=== PATIENT | female | born 1960 | race Caucasian/White ===

== ENCOUNTER 2023-12-04 16:45 | Emergency (ER) | payer MEDICAID, SELFPAY ==
[2023-12-04 17:00] VITALS: BP 122/79; PULSE 90; RESP 18; TEMP 36.2; O2SAT 98
--- NOTE | 2023-12-04 19:04 | ED_ITS ---
HPI - General Adult General Date Seen: 12/04/23 Chief complaint: Chest Pain Stated complaint: chest pain, anxiety Time Seen by Provider: 12/04/23 19:04 History of Present Illness HPI narrative: 63-year-old female presenting to the ER this afternoon for evaluation of chest pain. Per triage note she is complaining a major anxiety which he has had for a while. She has a prescription for medication but it is not working. Usually lorazepam helps. She normally gets her care through [facility] system. Patient presents that she is coming here for uncontrolled anxiety associated with nausea, vomiting, diarrhea and also chest pain. She says she has a longstanding history of anxiety and has a lot of trauma recently. She found her boyfriend last July and is still going through the grief and loss process for that. She also broke her left foot about 2 months ago and is still recovering from that. She has multiple other stressors in her life. She typically manages her anxiety with Ativan. It sounds like she may have been on other meds as well, (possibly Effexor? ). She says for the past couple of days she has developed vomiting and diarrhea. Also with that she has been having some chest discomfort since yesterday. Discomfort is located in the lower. Xiphoid region of her chest. She has been very anxious and tearful and can not control her anxiety. She says she has a good doctor at [facility] and they prescribed a new medication for her anxiety, but it is not working. She plans to follow-up with her doctor on Thursday to let them know that the medications not helping. She came to the ER today because she feels like her anxiety is out of control and she needs help. She is tearful over talking and says she has a lot of grief about her boyfriend dying and also multiple other stressors. She is not wanting to hurt herself. No thoughts of suicide. She politely declines the offer to talk to a psychologist here. She has made an appointment to see [facility] next week. She is wearing a cam walker on her left lower extremity. She says she broke her left foot or ankle about 6 or 8 weeks ago. It has been surgically repaired. She has already had a workup done at [facility] a couple weeks ago that was negative for any blood clots. She is not having any new pain or swelling in her leg today. No fever. No cough. No abdominal pain. No flank pain or back pain. Per record from [facility] link She saw Dr. Jaimes on 12/01. She has a past medical history through line of generalized anxiety disorder, panic attacks, noncompliance of medication treatment due to overuse of medication and/benzodiazepines. According to the liner records she had a prescription for 56 10 mg diazepam tablets and #30 Effexor XR 75 mg extended release capsules prescribed by Dr. Jaimes on 12/02/2023. According to his discharge instructions from note dated 12/02/2023 * We're going to start a very long taper of diazepam (valium) * Increase dose of venlefaxine to 75 mg but wait at least three days from starting diazepam. I've prescribed a new prescription for this but you can start by just taking two of the 37.5 mg capsules you currently have a the same time * Follow up with me on Thursday at 1030 for phone visit for now. Related Data Home Medications Medication Instructions Recorded Confirmed No Known Home Medications 12/04/23 12/04/23 Allergies Allergy/AdvReac Type Severity Reaction Status Date / Time hydroxyzine Allergy Intermediate Verified 12/04/23 17:07 Penicillins Allergy Intermediate Rash Verified 12/04/23 17:07 nickel Allergy Intermediate Uncoded 12/04/23 17:07 [facility] Social History Smoking Status: Unknown if ever smoked Exam Narrative: Exam Narrative: Constitutional: Encountered in ER room for, or ENT room, because all other ER beds are full. She has the pneumatic chair pumped up to maximum height which puts her about 4 ft off the floor. She is anxious and tearful. At times very upset and crying. Overall very polite and cooperative. She is very open about her anxiety, her grief, and her loss. Appears well-developed and well- nourished. Alert. Conversant. Non toxic. HENT: Head: Atraumatic. Nose: Nose normal. Mouth/Throat: Oral mucosa is clear and moist. no trismus. Pharynx normal. Tonsils symmetric. No tonsillar enlargement, erythema, or exudate. Eyes: Conjunctivae slightly red, likely from crying. EOM normal. Pupils equal, round, and reactive to light. No scleral icterus. Neck: Normal range of motion. Neck supple. No tracheal deviation present. Cardiovascular: Normal rate, regular rhythm. No gallop. No friction rub. No murmur heard. Symmetric radial artery pulses Pulmonary/Chest: Effort normal. No stridor. No respiratory distress. No wheezes. No rales. No rhonchi . No tenderness. Abdominal: Soft. Bowel sounds normal. No distension. No mass. No tenderness. No rebound. No guarding. Musculoskeletal: RUE: Normal range of motion. No tenderness. No deformity LUE: Normal range of motion. No tenderness. No deformity RLE: Normal range of motion. No edema. No tenderness. No deformity LLE: Normal range of motion. Trace edema. Wearing Cam boot on her left ankle as part of her healing process after getting her left ankle fracture repaired. Neurological: Alert and oriented to person, place, and time. Normal strength. CN II-VII intact. No sensory deficit. GCS eye subscore is 4. GCS verbal subscore is 5. GCS motor subscore is 6. Normal coordination Skin: Skin is warm and dry. No rash noted. No pallor. Normal capillary refill. Psychiatric: Endorses uncontrolled anxiety, also tear from the sink grief at home. Says her home meds are not working. She says she typically does better with Ativan. Const: Vital Signs, click to edit/add: Vital Signs - 24 hr 12/04/23 17:00 Temperature 97.1 F L Pulse Rate [Pulse Oximeter] 90 Respiratory Rate 18 Blood Pressure [Ri ght Upper Arm] 122/79 Pulse Oximetry 98 Oxygen Delivery Me thod Room Air Course Course ED Course: Recheck-says she still feeling a bit anxious. Her nurse says that they only gave her 0.5 mg of Ativan (although I ordered 1 mg). Feeling better in terms of nausea. Has completed her IV fluid bolus and now needs to urinate suggesting that she is getting hydrated. Will order 1 more mg Ativan for her here. She still declines to talk to DEC. Abnormal D-dimer discussed with the patient. We agreed to go ahead with CT imaging of her chest. CT PA ordered. Vital Signs Vital signs: Initial Vital Signs Temperature 97.1 F L 12/04/23 17:00 Temperature Source Temporal Artery Scan 12/04/23 17:00 Pulse Rate 90 12/04/23 17:00 Respiratory Rate 18 12/04/23 17:00 Blood Pressure 122/79 12/04/23 17:00 Blood Pressure Mean 93 12/04/23 17:00 Blood Pressure Position Sitting 12/04/23 17:00 Pulse Oximetry 98 12/04/23 17:00 Oxygen Delivery Method Room Air 12/04/23 17:00 Vital Signs Temperature 97.1 F L 12/04/23 17:00 Pulse Rate 90 12/04/23 17:00 Respiratory Rate 18 12/04/23 17:00 Blood Pressure 122/79 12/04/23 17:00 Pulse Oximetry 98 12/04/23 17:00 Oxygen Delivery Method Room Air 12/04/23 17:00 Temperature 97.1 F L 12/04/23 17:00 Pulse Rate 90 12/04/23 17:00 Respiratory Rate 18 12/04/23 17:00 Blood Pressure 122/79 12/04/23 17:00 Pulse Oximetry 98 12/04/23 17:00 Oxygen Delivery Method Room Air 12/04/23 17:00 Medications Administered Medications: Generic Name Dose Route Start Last Admin Trade Name Freq PRN Reason Stop Dose Admin Aspirin 162 mg 12/04/23 20:59 12/04/23 21:15 Aspirin 81 Mg Tab.Chew PO 12/04/23 21:00 162 mg ONCE ONE Administration Lorazepam 1 mg 12/04/23 21:06 12/04/23 21:15 Lorazepam 2 Mg/Ml Inj IVP 12/04/23 21:07 1 mg ONCE ONE Administration Discontinued Medications Generic Name Dose Route Start Last Admin Trade Name Freq PRN Reason Stop Dose Admin Aspirin 81 mg 12/05/23 09:00 12/04/23 19:48 Aspirin 81 Mg Tab.Chew PO 81 mg DAILY HANNA Administration Sodium Chloride 1,000 mls @ 1,000 mls/hr 12/04/23 19:30 12/04/23 21:16 0.9 % Sodium Chloride 1000 Ml IV 12/04/23 20:29 Infused .Q1H HANNA Infusion Lorazepam 1 mg 12/04/23 19:21 12/04/23 19:48 Lorazepam 2 Mg/Ml Inj IVP 12/04/23 19:22 1 mg ONCE ONE Administration Ondansetron HCl 4 mg 12/04/23 19:20 12/04/23 19:48 Ondansetron 2 Mg/Ml Inj IVP 12/04/23 19:21 4 mg ONCE ONE Administration Medical Decision Making MDM Narrative Medical decision making narrative: This patient presents to the ER today with several concerns. Primary among them is that she is having uncontrolled anxiety. It sounds like she has a long history of anxiety and multiple stressors recently. She has been working her primary care provider. She apparently had been on Ativan but he tried to take her off that and put her on a tapering dose of diazepam. She feels like the diazepam is not helpful. She was acutely anxious upon presentation here to the ER with clinical presentation consistent with panic attack. Treated with IV Ativan. She was feeling improved, but not completely back to normal after 1st dose of 2nd dose administered. She also had complaints of chest pain, as well as nausea and vomiting and diarrhea for the past couple of days. In terms of her chest pain, Differential was broad. No evidence of palpitations, syncope or other cardiac dysrhythmia. We considered possible ACS, however workup with EKG and troponin is negative. Given time since onset of symptoms, I do not think the patient needs to be admitted for further sets of enzymes. EKG shows no evidence for pericarditis. Clinical presentation not suggestive of myocarditis. Chest CT shows no evidence for pneumonia, pneumothorax, pulmonary edema, pleural effusion, rib fracture, cardiomegaly. Mediastinum is normal on the chest imaging The patient has no ripping or tearing pain through to the back and has symmetric pulses on exam, no other acute neuro findings so I doubt aortic dissection. Risk of radiation and contrast exposure would outweigh the benefit of CT angiogram. We considered PE for this patient. Abnormal D-dimer prompted CT PA. No wheezing or bronchospasm to suggest COPD/asthma. In terms of her vomiting and diarrhea this could be consistent with a possible viral illness. Laboratory workup and electrolyte panel reassuring. She is feeling improved after Zofran and fluids. Would manage supportively with watchful waiting over the next 24 hours. At this point no indication for CT imaging abdomen pelvis. No bloody diarrhea to risk concern for bacterial enteritis or C diff. Chest CT scan does show an incidental 1.4 cm nodule in the left lower lobe. Discussed in detail with the patient. She will follow up her primary care to arrange follow-up CT scan in 3 months as directed by Radiology. She does have very strong component of of anxiety underlying her other symptoms. She endorses ongoing anxiety and trouble with that. She is not requesting any prescription for Ativan because she is restricted in no she can only get prescriptions from her primary doctor. She will follow-up with her primary doctor on Thursday for ongoing anxiety management. Lab Data Labs: Lab Results 12/04/23 Range/Units 19:40 WBC 6.64 (4.50-11.00) K/uL RBC 3.94 L (4.00-5.20) m/uL Hgb 12.5 (12.0-16.0) gm/dL Hct 38.2 (33.0-51.0) % MCV 97 (80-100) fL MCH 32 (26-34) pg MCHC 33 (32-36) gm/dL RDW Coeff of Dedra 12.2 (11.5-15.5) % Plt Count 352 (140-440) K/uL Neut % (Auto) 44.3 (42.0-72.0) % Lymph % (Auto) 44.6 H (20-44) % [place] % (Auto) 7.1 (0.0-11.0) % Eos % (Auto) 2.9 (0.0-7.0) % Baso % (Auto) 0.9 (0.0-3.0) % Neut # (Auto) 2.95 (1.7-7.0) K/uL Lymph # (Auto) 3.00 H (0.90-2.90) K/uL [place] # (Auto) 0.50 (0.00-0.90) K/UL Eos # (Auto) 0.19 (0.00-0.50) K/uL Baso # (Auto) 0.06 (0.00-0.30) K/uL Abs Immat Gran (auto) 0.01 (0.00-0.30) K/uL Imm/Tot Granulo (auto) 0.2 % D-Dimer Quant (PE/DVT) 0.69 H (0.00-0.50) ug/ml Sodium 135 (135-149) mmol/L Potassium 3.7 (3.6-5.1) mmol/L Chloride 98 (96-114) mmol/L Carbon Dioxide 27 (20-32) mmol/L Anion Gap 10 (7-15) mEq/L BUN 8 (7-30) mg/dL Creatinine 0.6 (0.5-1.5) mg/dL Estimated Creat Clear 53.16 Estimated GFR 102 ml/min Glucose 93 (60-115) mg/dL Calcium 9.5 (8.4-10.6) mg/dL Troponin I < 0.01 L (0.01-0.04) ng/mL Imaging Data CT scan - chest: Attestation: I have reviewed the pertinent imaging results. Radiologist's impression: IMPRESSION: 1. No pulmonary embolism. No acute findings in the chest. 2. Round 1.4 cm left lower lobe pulmonary nodule. Recommend short interval follow-up chest CT in 3 months or PET-CT for further evaluation if no prior imaging is available to determine stability. ECG Data Attestation: I personally reviewed and interpreted this ECG as follows: Interpretation: Normal sinus rhythm rate 90 [place] 146 QRS axis normal axis. No pathologic Q-waves. ST segment/T wave: No ST segment elevation or depression. QTc: 469 Discharge Plan Discharge Clinical Impression: Nausea vomiting and diarrhea, Anxiety, Pulmonary nodule, Chest pain Patient Disposition: Home, Self-Care Condition: Stable Instructions: Chest Pain (DC), Pulmonary Nodules (ED), Anxiety (ED) Additional Instructions: Please follow-up with your regular doctor on Thursday to readjust her anxiety medications. Also please follow-up with your regular doctor on Thursday and have them arrange a repeat CT scan of your lungs within 3 months to double check a small spot that we see in your left lower lung on your CT scan tonight. If you have worsening chest pain, or if you have uncontrolled vomiting or diarrhea, dehydration, please come back to the ER right away to be rechecked. Use caution with Ativan because it causes drowsiness, dizziness, and can be ad dictive. It is very important for you to follow-up with your regular doctor and to adjust her medications. We cannot give further prescriptions for Ativan or other benzodiazepines through the ER. Prescriptions: No Action No Known Home Medications Follow Up/Referrals: Provider,Not a Local [Primary Care Provider] - Stand Alone Forms: [facility] Info Instructions
[2023-12-04] MEDS: 0.9 % SODIUM CHLORIDE 1000 ml 1,000 ML IV (19:48)
[2023-12-04] MEDS: LORazepam 2 MG/ML inj 1 MG IVP ×2 (19:48→21:15)
[2023-12-04] MEDS: ONDANSETRON 2 MG/ML inj 4 MG IVP (19:48)
[2023-12-04] MEDS: ASPIRIN 81 MG TAB.CHEW PO (19:48)
--- NOTE | 2023-12-04 19:48 | ED.NURSE ---
Order from MD to administer 81 mg aspirin now and not tomorrow at 0900, per NOV. Pt given PO aspirin 81 mg, per MD order. Unable to document in NOV d/t order time posted as tomorrow at 0900.
[2023-12-04 19:50] LABS: Basophils Absolute Auto 0.06 K/uL (0.00-0.30); Basophils Percent Auto 0.9 % (0.0-3.0); Eosinophils Absolute Auto 0.19 K/uL (0.00-0.50); Eosinophils Percent Auto 2.9 % (0.0-7.0); Hematocrit 38.2 % (33.0-51.0); Hemoglobin* 12.5 gm/dL (12.0-16.0); Immature Granulocytes Abs Auto 0.01 K/uL (0.00-0.30); Immature Granulocytes Pct Auto 0.2 %; Lymphocytes Percent Auto 44.6 % (20-44); Mean Corpuscular HGB Conc 33 gm/dL (32-36); Mean Corpuscular Hemoglobin 32 pg (26-34); Mean Corpuscular Volume 97 fL (80-100); Monocytes Percent Auto 7.1 % (0.0-11.0); Neutrophils Absolute Auto 2.95 K/uL (1.7-7.0); Neutrophils Percent Auto 44.3 % (42.0-72.0); Platelet Count* 352 K/uL (140-440); RDW Coefficient of Variation % 12.2 % (11.5-15.5); Red Blood Count 3.94 m/uL (4.00-5.20); White Blood Count* 6.64 K/uL (4.50-11.00)
[2023-12-04 20:00] VITALS: BP 103/63; PULSE 86; RESP 18; O2SAT 94
[2023-12-04 20:03] LABS: Slide Review Reflex No
[2023-12-04 20:07] LABS: Chloride* 98 mmol/L (96-114); Sodium* 135 mmol/L (135-149)
[2023-12-04 20:08] LABS: Potassium* 3.7 mmol/L (3.6-5.1)
[2023-12-04 20:10] LABS: Anion Gap 10 mEq/L (7-15); Blood Urea Nitrogen* 8 mg/dL (7-30); Carbon Dioxide* 27 mmol/L (20-32); Creatinine* 0.6 mg/dL (0.5-1.5); D Dimer Quantitative* 0.69 ug/ml (0.00-0.50); Est. Creatinine Clearance* 53.16; Estimated Glomerular Filt Rate 102 ml/min
[2023-12-04 20:11] LABS: Calcium* 9.5 mg/dL (8.4-10.6); Glucose* 93 mg/dL (60-115)
[2023-12-04 20:34] LABS: Troponin I* < 0.01 ng/mL (0.01-0.04)
--- NOTE | 2023-12-04 21:00 | CT_ITS ---
Patient: TARAH BAXTER Facility:?[facility] Patient ID:?[id number] Site Patient ID:?[id number]. Site :?[id number] Study:?CT-Chest PE W/ISOVUE 370 95CC-12/04/2023 9:55:32 PM Ordering Physician:ABRAHAM Final Report: INDICATION: Chest pain, abnormal D-dimer. TECHNIQUE: CT chest PE was acquired with 95 cc Isovue 370 IV contrast. COMPARISON: None. FINDINGS: Heart and vasculature: Contrast opacification of the pulmonary arterial tree is adequate. No sign of pulmonary embolism. Heart size is normal. Thoracic aorta and pulmonary artery are normal in caliber. Lungs and pleura: 1.4 cm round nodule within the posterior basal segment of the left lower lobe. The remainder of the lungs are clear. No pleural effusion pneumothorax. Lymph nodes/mediastinum: No mediastinal, hilar, or axillary adenopathy. Chest wall: No masses. Upper abdomen: No acute or significant findings. Bones: Unremarkable for age. IMPRESSION: 1. No pulmonary embolism. No acute findings in the chest. 2. Round 1.4 cm left lower lobe pulmonary nodule. Recommend short interval follow-up chest CT in 3 months or PET-CT for further evaluation if no prior imaging is available to determine stability. Please note that all CT scans at this facility use dose modulation, iterative reconstruction, and/or weight-based dosing when appropriate to reduce radiation dose to as low as reasonably achievable. Dictated by Willis Byers MD @ 12/04/2023 10:42:27 PM Signed by:?Willis Byers MD @12/04/2023 10:42:27 PM (Electronic Signature)
[2023-12-04] MEDS: ASPIRIN 81 MG TAB.CHEW 162 MG PO (21:15)
[2023-12-04 23:00] VITALS: BP 109/77; PULSE 83; RESP 18; O2SAT 99
[2023-12-04] MEDS: LORazepam 1 MG TABLET PO (23:50)
== END 2023-12-05 00:15 | disposition home or self-care (01) ==
PROVIDERS: Emergency Provider Emergency Medicine
DX: R11.2 Nausea with vomiting, unspecified (principal); R19.7 Diarrhea, unspecified; F41.9 Anxiety disorder, unspecified; R91.1 Solitary pulmonary nodule; R07.9 Chest pain, unspecified
CPT/HCPCS: 36415; 71275; 80048; 84484; 85025; 85379; 96374; 96375; 99284; A9270; J2060; J2405; J7030; Q9967